=== PATIENT | female | born 1990 | race Two or more races ===

== ENCOUNTER 2017-03-19 12:38 | Emergency (ER) | payer BC, OTHER ==
[~2017-03-19] VITALS: Ht 157.5 cm; Wt 77.1 kg
[2017-03-19 13:33] LABS: Basophils # (auto) 0 uL; Basophils % (auto) 0.3 % (0.0-2.0); Eosinophils # (auto) 0.4 uL; Eosinophils % (auto) 3.3 % (0.0-7.0); Hematocrit 38.5 % (36.0-46.0); Hemoglobin 12.6 g/dL (12.2-16.2); Lymphocytes % (auto) 16.8 % (10.0-50.0); Mean Corpuscular Hgb Conc. 32.6 g/dL (32.0-36.0); Mean Corpuscular Volume 89.1 fL (80.0-100.0); Mean Platelet Volume 8.6 fL (7.4-10.4); Monocytes # (auto) 1.1 uL; Monocytes % (auto) 9.8 % (0.0-12.0); Neutrophils # (auto) 8.1 uL; Neutrophils % (auto) 69.8 % (37.0-80.0); Platelet Count (auto) 416 10^3/uL (140-450); Red Cell Distribution Width 14.2 % (11.6-16.0); White Blood Cell 11.6 10^3/uL (4.4-10.8)
[2017-03-19 13:34] LABS: Urine Bilirubin Negative (Negative); Urine Color Yellow (Yellow); Urine Glucose Normal (Normal); Urine Ketone Negative (Negative); Urine Mucus FEW (None Seen); Urine RBC 40 /hpf (0 - 4); Urine Squamous Epithelial Cell FEW /hpf (<5); Urine Urobilinogen Normal (Negative)
[2017-03-19 13:35] LABS: Urine Blood 2+ /uL (Negative); Urine Nitrite POSITIVE (Negative)
[2017-03-19 13:51] LABS: Albumin 3.9 g/dL (3.4-5.0); Calcium 8.8 mg/dL (8.5-10.1)
[2017-03-19 13:54] LABS: Bilirubin, Total 0.3 mg/dL (0.2-1.0); Total Protein 7.6 g/dL (6.4-8.2)
[2017-03-19 15:01] VITALS: BP 114/82
== END 2017-03-19 15:19 | disposition home or self-care (01) ==
LOC: ER 12:44
DX: N39.0 Urinary tract infection, site not specified (principal); J45.909 Unspecified asthma, uncomplicated; Z87.442 Personal history of urinary calculi
CPT/HCPCS: 36415; 80053; 81001; 81025; 85025

== ENCOUNTER 2020-11-13 11:00 | Emergency (ER) | payer BC, MEDICAID ==
[~2020-11-13] VITALS: Ht 157.5 cm; Wt 81.6 kg
[2020-11-13 11:34] VITALS: BP 151/99
[2020-11-13 12:37] LABS: Urine Bacteria NONE SEEN /hpf (None Seen); Urine Blood 2+ /uL (Negative); Urine Specific Gravity 1.014 (1.001-1.035); Urine WBC 2 /hpf (0 - 5)
== END 2020-11-13 16:33 | disposition home or self-care (01) ==
LOC: ER 11:00
DX: O03.9 Complete or unspecified spontaneous abortion without complication (principal); Z3A.01 Less than 8 weeks gestation of pregnancy
CPT/HCPCS: 36415; 76801; 76817; 81001; 84702

== ENCOUNTER 2022-02-28 09:53 | Emergency (ER) | payer BC, OTHER ==
[~2022-02-28] VITALS: Ht 157.5 cm; Wt 104.3 kg
[2022-02-28 10:45] LABS: Basophils # (auto) 0 10 ^3/uL (0-0.2); Basophils % (auto) 0.5 % (0.0-2.0); Eosinophils # (auto) 0.1 10 ^3/uL (0-0.8); Eosinophils % (auto) 0.9 % (0.0-7.0); Hemoglobin 13.2 g/dL (12.2-16.2); Lymphocytes # (auto) 1.9 10 ^3/uL (0.4-5.4); Lymphocytes % (auto) 24.1 % (10.0-50.0); Mean Corpuscular Hemoglobin 29.8 pg (28.0-32.0); Mean Corpuscular Hgb Conc. 33.1 g/dL (32.0-36.0); Mean Corpuscular Volume 89.9 fL (80.0-100.0); Monocytes # (auto) 0.5 10 ^3/uL (0-1.3); Monocytes % (auto) 6.6 % (0.0-12.0); Neutrophils # (auto) 5.4 10 ^3/uL (1.6-8.6); Neutrophils % (auto) 67.9 % (37.0-80.0); Nucleated Red Blood Cells % 0.1 %; Red Blood Cells 4.44 10^6/uL (4.0-5.20); Red Cell Distribution Width 13.5 % (11.8-14.3); White Blood Cell 7.9 10^3/uL (4.4-10.8)
[2022-02-28 11:16] LABS: Albumin 3.5 g/dL (3.4-5.0); Calcium 9.4 mg/dL (8.5-10.1)
[2022-02-28 11:39] LABS: Urine Bacteria NONE SEEN /hpf (None Seen); Urine Blood 3+ /uL (Negative); Urine Specific Gravity 1.012 (1.001-1.035); Urine WBC 1 /hpf (0 - 5)
[2022-02-28 11:41] LABS: Bilirubin, Total 0.2 mg/dL (0.2-1.0); Total Protein 7.7 g/dL (6.4-8.2)
[2022-02-28 16:36] VITALS: BP 139/90
== END 2022-02-28 17:44 | disposition home or self-care (01) ==
LOC: ER 09:53
DX: O03.9 Complete or unspecified spontaneous abortion without complication (principal); Z87.442 Personal history of urinary calculi; Z3A.01 Less than 8 weeks gestation of pregnancy
CPT/HCPCS: 36415; 76801; 76817; 80053; 81001; 84702; 85025

== ENCOUNTER 2024-05-03 09:12 | Emergency (ER) | payer BC, OTHER ==
[~2024-05-03] VITALS: Ht 157.5 cm; Wt 94.4 kg
[2024-05-03 09:45] VITALS: BP 157/101; PULSE 106; RESP 16; TEMP 98.8; O2SAT 97
[2024-05-03] MEDS: ACETAMINOPHEN 325 MG TAB PO ONE (10:03)
[2024-05-03] MEDS ORDERED: LIDO5DIS21 TOP (12:53)
== END 2024-05-03 12:58 | disposition home or self-care (01) ==
LOC: ER 09:12
DX: R07.81 Pleurodynia (principal); J45.909 Unspecified asthma, uncomplicated; Z87.442 Personal history of urinary calculi; Z90.49 Acquired absence of other specified parts of digestive tract; Z88.4 Allergy status to anesthetic agent; V89.2XXA Person injured in unspecified motor-vehicle accident, traffic, initial encounter; Y93.89 Activity, other specified; Y92.89 Other specified places as the place of occurrence of the external cause; Y99.8 Other external cause status
CPT/HCPCS: 71101; 81025